=== PATIENT | female | born 1990 | race Caucasian/White ===

== ENCOUNTER 2019-07-30 15:18 | Emergency (ER) | payer BC, OTHER ==
--- OUTSIDE RECORDS SUMMARY | 2019-07-30 15:28 | XMS REPORT | Continuity of Care Document ---
:1990 External Reference #:[id number] Author Name Avril Lovell PA Address [address] [place] [address] Care Team Providers Name Role Phone Reid Ayala MD - General Care Team Information Social Service Manager [phone] Practice Problems Active Problems Provider Date Localized, primary osteoarthritis Avril Lovell PA Onset: 07/13/2019 Derangement of knee Avril Lovell PA Onset: 07/13/2019 Current tear of lateral cartilage AND/OR Avril Lovell PA Onset: 07/13/2019 meniscus of knee Social History Type Date Description Comments Sex Unknown Tobacco Use Start: Unknown Never Smoked Cigarettes Smoking Status Reviewed: 07/13/19 Never Smoked Cigarettes ETOH Use Drinks Alcoholic Beverages Occasionally Recreational Drug Use Never Used Drugs Allergies, Adverse Reactions, Alerts Description No Known Drug Allergies Medications Active Medications SIG Qnty Indications Ordering Provider Date Xulane Apply And Change Unknown 150-35mcg/24HR Patch Weekly For Patches Weekly 1-3 Weeks Then No Patch For Week 4 Immunizations Description No Information Available Vital Signs Date Vital Result Comment 07/13/2019 1:26pm BP Systolic Sitting Right Arm 134 mmHg BP Diastolic Sitting Right Arm 80 mmHg Body Temperature 98.6 F Heart Rate 97 /min Respiratory Rate 20 /min Weight 149.00 lb O2 % BldC Oximetry 99 % Results Description No Information Available Procedures Date Code Description Status 07/13/2019 40907 Radiology, Knee 3 Views Completed Medical Devices Description No Information Available Encounters Type Date Location Provider Dx Diagnosis Office Visit 07/13/2019 Orthopaedic Office Avril Lovell, M23.8x1 Other internal 1:30p PA derangements of right knee M17.11 Unilateral primary osteoarthritis, right knee M25.561 Pain in right knee Z98.84 Bariatric surgery status Assessments Date Code Description Provider 07/13/2019 M23.8x1 Other internal derangements of right knee Avril Lovell PA 07/13/2019 M17.11 Unilateral primary osteoarthritis, right knee Avril Lovell PA 07/13/2019 M25.561 Pain in right knee Avril Lovell PA 07/13/2019 Z98.84 Bariatric surgery status Avril Lovell PA Plan of Treatment Future Appointment(s):08/03/2019 1:00 pm - Avril Lovell PA at [facility]/13/2019 - Avril Lovell, PAM23.8x1 Other internal derangements of right kneeComments:I have explained that she does have arthritis within the knee , but her symptoms are more consistent with a meniscus tear. I have recommended an MRI to evaluate for meniscus tear. She was also placed in a hinge knee brace which she found helpful. Patient will use Tylenol as needed for pain as she isunable to use NSAIDs since she is status post gastric bypass surgery, rest, ice, and elevation are also recommended. Patient will follow up after the MRI.M17.11 Unilateral primary osteoarthritis, right kneeM25.561 Pain in right kneeZ98.84 Bariatric surgery status Functional Status Description No Information Available Mental Status Description No Information Available Referrals Description No Information Available
--- OUTSIDE RECORDS SUMMARY | 2019-07-30 15:28 | XMS REPORT | Summary of Care ---
:1990 Author Organization [facility] Address [address] [place] [address] Care Team Providers Name Role Phone Kourtney Lopez NP Primary Care Provider Reason for Visit Reason Comments New Patient plastics Consultation (Routine) Status Reason Specialty Diagnoses / Referred By Contact Referred To Procedures Contact Open Breast Surgery Procedures Kourtney Lopez NP Breast Care panniculectomy [address] [facility] [place], [place] Plastic Surgery [address] Center Provider-Based [address] [place] [id number] Encounter Details Date Type Department Care Team Description 07/16/2019 Office Visit Breast Care, Jayda, Pannus, abdominal (Primary Dx); Endocrine and Plastic Gerardo Frias MD Excessive and redundant skin and subcutaneous tissue [facility] [address] [place] [address] [address] [place], [place] [id number] [place] [address] [phone] Allergies No Known Allergiesdocumented as of this encounter (statuses as of 07/16/2019) Medications Medication Sig Dispensed Refills Start Date End Date Status Fe Fum-Fe Poly-Vit Take by mouth 0 Active C-Lactobac (FUSION PO) Nystatin POWD Apply to affected 1 Bottle 2 08/31/2018 Active areas TID PRN Additional information Patient not taking. Reported on 07/16/2019 1:[address] onto the skin 0 Active PATIENTIndications: Indications: control patch control patch levonorgestrel (KYLEENA) 1 Intra Uterine 0 Discontinued 19.5 MG releasing Device by 0 (Discontinued by intrauterine system Intrauterine route another clinician) once documented as of this encounter (statuses as of 07/16/2019) Active Problems Problem Noted Date BMI 35.0-35.9,adult 08/31/2018 Hypomagnesemia 03/17/2018 S/P bariatric surgery, lap RNY 01/13/2018 Anxiety 05/01/2017 Overview: Added automatically from request for surgery [id number] Mild single current episode of major depressive disorder 05/01/2017 Overview: Added automatically from request for surgery [id number] PCOS (polycystic ovarian syndrome) 04/18/2017 Acanthosis nigricans 04/18/2017 Arthritis 04/18/2017 documented as of this encounter (statuses as of 07/16/2019) Resolved Problems Problem Noted Date Resolved Date 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 03/18/2018 08/31/2018 surgery Nausea 03/17/2018 08/31/2018 Abdominal pain 03/17/2018 08/31/2018 Hypokalemia 03/17/2018 08/31/2018 Hypocalcemia 03/17/2018 08/31/2018 Morbid obesity 01/13/2018 08/31/2018 Morbid obesity with BMI of 50.0-59.9, adult 04/18/2017 08/31/2018 Prediabetes 04/18/2017 08/31/2018 documented as of this encounter (statuses as of 07/16/2019) Social History Tobacco Use Types Packs/Day Years Used Date Current Some Day Smoker Smokeless Tobacco: Never Used Tobacco Cessation: Ready to Quit: Yes; Counseling Given: Yes Alcohol Use Drinks/Week oz/Week Comments No Sex Assigned at Date Recorded Not on file Job Start Date Occupation Industry Not on file Not on file Not on file Travel History Travel Start Travel End No recent travel history available. documented as of this encounter Last Filed Vital Signs Vital Sign Reading Time Taken Comments Blood Pressure 126/81 07/16/2019 1:49 PM EST Pulse 72 07/16/2019 1:49 PM EST Temperature 36.7 07/16/2019 1:49 PM EST C (98.1 F) Respiratory Rate - - Oxygen Saturation 100% 07/16/2019 1:49 PM EST Inhaled Oxygen Concentration - - Weight 67.6 kg (149 lb) 07/16/2019 1:49 PM EST Height 154.9 cm (5' 1") 07/16/2019 1:49 PM EST Body Mass Index 28.15 07/16/2019 1:49 PM EST documented in this encounter Progress Notes Gerardo Montelongo MD - 07/16/2019 2:00 PM EST REASON FOR CONSULTATION: Patient is interested in undergoing Panniculectomy HISTORY OF PRESENT ILLNESS: Lizette Machado is a very pleasant 28 y.o. year-old female who arrives today to talk about a possible panniculectomy . She is referred to me after having bariatric surgery. Gastric bypass surgery was done 15 months back. Her initial weight before bariatric surgery was 320 pounds. Her current weight is 148 pounds and Her current Body mass index is 28.15 kg/m .. she has lost 172 pounds since surgery. The minimum she weighed after surgery was 138. The current weight has been stable for 5 months The Pt reports rashes under the skin folds. Pt reports that this condition required use of nystatincream and powder in the past. This condition is severely affecting the quality of her life. She describes a constant odor around her inspite of meticulous efforts at personal hygiene. The rashes are almost always refractory to medications and reappear instantly after cessation of treatment and sometimes persist inspite of aggressive treatment. The patient wishes to have the excess overhanging skin and tissue removed in the form of a panniculectomy. Past Medical history Lizette Machado has a past medical history of Anxiety, Arthritis, Carpal tunnel syndrome of right wrist, Depression, History of torn meniscus of right knee, PCOS (polycystic ovarian syndrome), and Tendonitis of shoulder, left. Current Medications Lizette Machado had no medications administered during this visit. Past Surgical History Lizette Machado has has a past surgical history that includes pr egd transoral biopsy single/multiple (N/A, 05/13/2017); pr lap gastric bypass/nicolás-en-y (N/A, ); pr esophagogastroduodenoscopy transoral diagnostic (N/A, 01/13/2018); and pr egd balloon dilation esophagus <30 mm diam (N/A, 03/18/2018). Social History Lizette Machado reports that she has been smoking. She has never used smokeless tobacco. She reports that she does not drink alcohol or use drugs. Her occupation is manual labour History of Tobacco Use she reports that she has been smoking. She has never used smokeless tobacco. She is ready to quit completely. Scar formation On enquiry about tendency for excessive scar formation e.g keloids or hypertrophic scar in the patient or close relative, she replied no Family History: she is single Her family history includes Sleep apnea in her father. She has 0 kids. She indicated that she does not plan to get in the future. Review of Systems Ros per new patient intake form (Scanned into the patient's chart) In brief, HENT: negative Pulmonary: Respiratory ROS: no cough, shortness of breath, or wheezing Cardiovascular ROS: no chest pain or dyspnea on exertion, no palpitations and leg swelling. Gastrointestinal: Gastrointestinal ROS: no abdominal pain, change in bowel habits, or black or bloody stools Musculoskeletal: Positive for back pain. Neurological: Negative for history of stroke Psychiatric/Behavioral: negative for anxiety and depression Physical Examination Vitals: 07/16/19 1349 BP: 126/81 Pulse: 72 Temp: 36.7 C (98.1 F) TempSrc: Oral SpO2: 100% Weight: 67.6 kg (149 lb) Height: 1.549 m (5' 1") Body mass index is 28.15 kg/m. Body surface area is 1.71 meters squared. Examination was done in the presence of a female acute dialysis registered nurse. General: She is awake, alert and oriented times three. There is no acute distress, answers questions willingly, and is in a normal mood. On further physical examination She has some abdominal tissue excess with overhanging pannus onto her mons and upper thigh. The patient does have evidence of prior rashes and moderate in degree scarring on the underside of the pannicular surface. I did not appreciate any abdominal or groin hernias. Her scars from the abdominal surgeries were noted and found to have healed well. ASSESSMENT/PLAN: Lizette Machado is a very pleasant 28 y.o. year-old female here to discuss possible panniculectomy surgery. The patient is status bariatric surgery with a resultant overhanging pannus which is causing difficulty in maintaining hygiene and problems with chronic rash requiring antifungals.This condition is severely affecting the quality of her life. She describes a constant odor around her inspite of meticulous efforts at personal hygiene. The rashes are almost always refractory to medications and reappear instantly after cessation of treatment and sometimes persist inspite of aggressive treatment. The patient wishes to have the excess overhanging skin and tissue removed in the form of a panniculectomy. I think Lizette Machado will be a good candidate for a panniculectomy and it would help rashes under theskin fold immensely. I explained to Lizette Machado that the procedure takes approximately 2-3 hours, requires an overnight hospital stay and recovery is 3-4 weeks. Given the high risk of wound infectionand dehiscence , I plan to apply negative pressure therapy dressing on her wound after surgery. This dressing stays on her wound for 10 days post op. It is usually removed, along with drains in my clinic on Post op day 10. Lizette Machado understands this and we will submit the information to their insurance company for authorization. The risks of the surgery including but not limited to wound dehiscence, seroma formation, wound infection, need for further surgery, unsatisfactory or hypertropic scarring, unattractive final result were explained to the patient. The high risk of Deep Vein Thrombosis and Pulmonary embolism after surgery was explained to the patient. I clearly mentioned to the patient that panniculectomy is a palliative procedure meant for symptom relief. Only the excess overhanging skin will be removed. There will be no umbilicus repositioning or abdominal wall plication. She also understands that I will most likely remove her umbilicus as it's reconstruction is associated with increased complication rate. It is currently a site of constant irritation and rash too. She is not sure about wanting surgery if that is the case. Patient voiced understanding and wants to proceed with surgery. The importance of a high protein diet to help in wound healing was emphasized to the patient. We mayorder nutrition labs to be reviewed before surgery. She is currently smoking. I will see her back in 3 months if she is interested in surgery and has completely stopped smoking. I spent 30 minutes with Lizette Machado. The vast majority of the time was spent on patient education and counseling. documented in this encounter Plan of Treatment Health Maintenance Due Date Last Done Comments MMR Vaccines (1 of 1 - Standard 10/20/1992 series) Varicella Vaccines (1 of 2 - 10/20/1992 2-dose childhood series) Pneumococcal Vaccine: Pediatrics 10/20/1997 (0 to 5 Years) and At-Risk Patients (6 to 64 Years) (1 of 1 - PPSV23) DTaP,Tdap,and Td Vaccines (1 - 10/20/1998 Tdap) HIV Screening 10/20/2004 Cervical Cancer Screening 3 years 10/20/2012 Influenza Vaccine 04/06/2019 Pneumococcal Vaccine: 65+ Years (1 10/20/2056 of 2 - PCV13) HIB Vaccines Aged Out No longer eligible based on patient's age to complete this topic Hepatitis A Vaccines Aged Out No longer eligible based on patient's age to complete this topic Hepatitis B Vaccines Aged Out No longer eligible based on patient's age to complete this topic IPV Vaccines Aged Out No longer eligible based on patient's age to complete this topic documented as of this encounter Implants Implanted Type Area Leather Case Finisher Device Shelf Model / Identifier Expiration Serial / Lot Date Stapler Seamguard [place] 60 - [id number] N/A: COLEEN CASTELAN 2020 [id number] / Implanted: Qty: 1 on 01/13/2018 by Gabriel Duggan MD at [facility] [employer] / [id number] Stapler Seamguard [place] 60 - [id number] N/A: COLEEN CASTELAN 2019 [id number] / Implanted: Qty: 3 on 01/13/2018 by Gabriel Duggan MD at [facility] [employer] / [id number] documented as of this encounter Results Not on filedocumented in this encounter Visit Diagnoses Diagnosis Pannus, abdominal - Primary Localized adiposity Excessive and redundant skin and subcutaneous tissue documented in this encounter
--- NOTE | 2019-07-30 15:34 | UC ---
Nausea/Vomiting/Diarrhea HPI - HPI Summary HPI Summary: 28-year-old female presenting with lower abdominal/pelvic pain that started 2 days ago when her period began on Friday. Patient states that her flow is much heavier than usual and she is soaking through a super plus tampons every couple hours. Patient states that his flow stopped around 10 AM this morning she is now spotting. But patient also notes that she had "a glob of clear mucus the size of her home", with her tampon this morning. Patient states she vomited 4 times this morning and is unable to keep food down. States she can't keep fluids down. Denies current nausea. Denies change in bowel movements. She states her pelvic pain radiates to her back. States heating pad relieves pain. Denies any aggravating factors. Denies taking anything for pain relief, as she has had gastric bypass and states she is afraid to take anything after being not to take pain killers. Denies any concern for ST eyes. Denies any chance of . Denies other GI/ history. She has nexplanon implant. - History of Current Complaint Stated Complaint: VOMITING, PAIN Hx Obtained From: Patient Hx Last Menstrual Period: unknown due to implanon - Allergies/Home Medications Allergies/Adverse Reactions: Allergies Allergy/AdvReac Type Severity Reaction Status Date / Time No Known Allergies Allergy Verified 07/30/19 15:38 PMH/Surg Hx/FS Hx/Imm Hx - Surgical History Surgical History: None - Family History Known Family History: Positive: None - Social History Alcohol Use: None Substance Use Type: None Smoking Status (MU): Never Smoked Tobacco Review of Systems All Other Systems Reviewed And Are Negative: No Physical Exam - Summary Physical Exam Summary: Vital Signs Reviewed: Yes A+Ox3, no distress Eyes: Conjunctiva Clear, GINNA. EOM intact and full ENT: Hearing grossly normal TM x 2 clear, moist, uvula midline, no exudate, no erythema Neck: Positive: Supple Respiratory: Positive: No respiratory distress, No accessory muscle use + CTA throughout no w/r Cardiovascular: RRR nl s1, s2 no m/r CBT <2 sec abd soft + BS nt/nd no guarding, no distension Musculoskeletal Exam: FULLER x 4 without difficulty Strength Intact, ROM Intact Neurological: Positive: Alert, + sensation throughout Psychological: Positive: age appropriate behavior Skin: Positive: no rash, no ecchymosis Vital Signs: Vital Signs (72 hours) 07/30/19 15:30 Temperature 97.7 F Pulse Rate 69 Respiratory 18 Rate Blood Pressure 127/55 (mmHg) O2 Sat by Pulse 100 Oximetry Lab Results 07/30/19 07/30/19 Range/Units 15:47 15:50 POC Urine Color Yellow POC Urine Clarity Clear POC Urine pH 5.5 (5-9) POC Ur Specif Bradley 1.020 (1.010-1.030) POC Urine Protein Negative (Negative) POC Ur Glucose (UA) Negative (Negative) POC Urine Ketones Negative (Negative) POC Urine Blood 2+ A (Negative) POC Urine Nitrite Positive (Negative) POC Urine Bilirubin Negative (Negative) POC Urine Urobilinogen 0.2 (Negative) POC U Leukocyte Esteras Negative (Negative) POC Ur Test Negative (Negative) Naus/Vom/Diarrhea Course/Dx - Differential Dx/Diagnosis Provider Diagnosis: Pelvic pain Condition At Discharge: Stable Discharge ED - Sign-Out/Discharge Documenting (check all that apply): Patient Departure All imaging exams completed and their final reports reviewed: No Studies - Discharge Plan Condition: Stable Disposition: HOME Patient Education Materials: Acute Nausea and Vomiting (ED), Pelvic Pain in Women (ED) Referrals: Kourtney Lopez NP [Primary Care Provider] - Additional Instructions: As discussed, it is unclear what is causing your pelvic pain today. It is suggested that you get an ultrasound if your symptoms persist. Get plenty of rest and increase fluid intake. You may continue with the heating pad for pain relief. Go to the emergency room if your symptoms do not resolve or you develop fever, worsening pain, increased vaginal bleeding, excessive vomiting, or you are unable to keep fluids down. - Billing Disposition and Condition Condition: STABLE Disposition: Home
[2019-07-30 15:38] VITALS: BP 127/55
--- NOTE | 2019-08-02 07:14 | UC ---
- Progress Note Progress Note: Please notify patient If not better she should get rechecked here or ER If she has UTI symptoms let me know If completely better should see her PCP for recheck urine JLD Course/Dx - Diagnoses Provider Diagnoses: Pelvic pain Discharge ED - Sign-Out/Discharge Documenting (check all that apply): Post-Discharge Follow Up All imaging exams completed and their final reports reviewed: No Studies - Discharge Plan Condition: Stable Disposition: HOME Patient Education Materials: Acute Nausea and Vomiting (ED), Pelvic Pain in Women (ED) Referrals: Kourtney Lopez NP [Primary Care Provider] - Additional Instructions: As discussed, it is unclear what is causing your pelvic pain today. It is suggested that you get an ultrasound if your symptoms persist. Get plenty of rest and increase fluid intake. You may continue with the heating pad for pain relief. Go to the emergency room if your symptoms do not resolve or you develop fever, worsening pain, increased vaginal bleeding, excessive vomiting, or you are unable to keep fluids down. - Billing Disposition and Condition Condition: STABLE Disposition: Home
== END 2019-07-30 16:26 | disposition home or self-care (01) ==
LOC: UCCORT 15:18
DX: R11.2 Nausea with vomiting, unspecified (principal); R10.2 Pelvic and perineal pain; Z32.02 Encounter for pregnancy test, result negative
CPT/HCPCS: 81003; 84702; 87077; 87086; 87186; 99211; G0463